=== PATIENT | female | born 1975 | race Caucasian/White ===

== ENCOUNTER 2016-07-11 09:07 | Emergency (ER) | payer OTHER ==
[~2016-07-11] VITALS: Ht 170.2 cm; Wt 72.6 kg
[2016-07-11 09:25] VITALS: BP 116/77
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
[2016-07-11] MEDS ORDERED: IBUPROFEN 600 MG TABLET. PO ONE (09:45)
[2016-07-11] MEDS ORDERED: IBUP600T16 PO (09:54)
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
== END 2016-07-11 10:10 | disposition home or self-care (01) ==
LOC: ER 09:07
DX: S83.91XA Sprain of unspecified site of right knee, initial encounter (principal); F17.200 Nicotine dependence, unspecified, uncomplicated; V89.2XXA Person injured in unspecified motor-vehicle accident, traffic, initial encounter; Y93.89 Activity, other specified; Y99.8 Other external cause status; Y92.89 Other specified places as the place of occurrence of the external cause
CPT/HCPCS: 73564; 99284